=== PATIENT | male | born 1985 | race Caucasian/White ===

== ENCOUNTER 2018-01-03 16:51 | Emergency (ER) | payer OTHER, SELFPAY ==
[2018-01-03 16:54] VITALS: BP 118/72; PULSE 84; RESP 16; TEMP 36.9; O2SAT 100
--- NOTE | 2018-01-03 17:04 | ED.GENADUL_ITS ---
Disposition Clinical Impression: Second degree burn of back of hand Disposition: HOME Condition: Stable Instructions: Second Degree Burn (ED), Acute Wound Care (ED) Additional Instructions: As long his blister is intact to not pop it. If you have any significant worsening of symptoms feel free to return for reassessment or if you feel that your burn is getting infected otherwise you may apply ice, take ibuprofen, and you may utilize ksyx-iol-wjelery burn creams if you feel they are helping relieve your symptoms. Prescriptions: Ibuprofen 600 mg PO Q6H PRN PRN #20 tablet PRN Reason: Pain Referrals: Primary Care Provider [Outside] (As needed for reassessment) Forms: Work Release Medical Decision Making - Medical Decision Making Patient presenting to the emergency department for small grease burn to right dorsal aspect of his hand while he was at work at [employer]. Patient has approximately 3 cm burn with blistering to the hand with no other symptoms and no signs of airway compromise or involvement. Patient was encouraged to continue use ibuprofen and he may apply ice this evening for discomfort otherwise to keep blister intact and to utilize [id number] burn creams if he feels that they are beneficial. Patient was instructed to return for any signs of infection of his burn otherwise follow-up with primary care provider as needed. After discussion of diagnosis and plan of care with patient patient agreed and stated no further needs, questions, or concerns at this time. History of Present Illness - General Chief complaint: Burn Stated complaint: BURN Time Seen by Provider: 01/03/18 17:02 Source: patient, RN notes reviewed Mode of arrival: ambulatory Limitations: no limitations - History of Present Illness Initial comments: Patient reports approximately 30-40 minutes prior to arrival he was working the grill at [employer] and had grease splashed onto his right hand predominantly and mildly onto his left pinky. Immediately after this he took some Tylenol and ibuprofen but noticed some blistering and significant discomfort to the hand so is presenting to the emergency department. Patient denies any other injury or trauma, states no grease or any other arana near his face, no difficulty breathing. Onset/Timin -: minutes(s) Location: right, upper extremity Severity scale (1-10): 8 Quality: burning Consistency: constant Improves with: none Worsens with: none Associated Symptoms: denies other symptoms Treatments Prior to Arrival: NSAID - Related Data Ibuprofen 600 mg PO Q6H PRN PRN #20 tablet 01/03/18 Allergies Allergy/AdvReac Type Severity Reaction Status Date / Time No Known Allergies Allergy Unverified 01/03/18 16:57 Review of Systems Constitutional: no symptoms reported ENT: denies: throat pain Respiratory: no symptoms reported. denies: cough, shortness of breath, stridor , wheezing Skin: as per HPI Comment: All other systems reviewed and negative Past Medical History - Past Medical History Surgical history: other (Shrapnel removed from face, lower abdominal, and right leg.) Psychiatric history: anxiety, depression, post traumatic stress - Social History Smoking status: current everyday smoker Alcohol use: occasionally Drug use: marijuana Living Situation: lives with family General Exam - General Limitations: no limitations General appearance: alert, other (Patient in obvious discomfort) - Head Head exam: Present: atraumatic, normocephalic - Eye Eye exam: Present: normal apperance - ENT ENT exam: Present: normal orophraynx - Respiratory Respiratory exam: Absent: respiratory distress - Cardiovascular Cardiovascular Exam: Present: regular rate, normal rhythm - Extremities Exam Extremities exam: Present: full ROM, normal capillary refill. Absent: joint swelling - Neurological Exam Neurological exam: Present: alert, oriented X3. Absent: altered - Skin Skin exam: Present: warm, dry, intact, other (Patient has a second-degree burn to the posterior aspect of the right hand corresponding with the space in between the second and third metacarpals. There is some blistering and erythema noted to the area but total size of the area appears to be less than 3 cm diameter.) Course Vital Signs - 24 hr 01/03/18 16:54 Temperature 36.9 C Pulse 84 Respiratory 16 Rate Blood Pressure 118/72 Pulse Oximetry 100
== END 2018-01-03 17:43 | disposition home or self-care (01) ==
PROVIDERS: Emergency Provider Emergency Medicine
DX: T23.161A Burn of first degree of back of right hand, initial encounter (principal); X10.2XXA Contact with fats and cooking oils, initial encounter; Y99.0 Civilian activity done for income or pay; Y93.G1 Activity, food preparation and clean up; Y92.511 Restaurant or cafe as the place of occurrence of the external cause
CPT/HCPCS: 99283